=== PATIENT | male | born 1975 | race Caucasian/White ===

== ENCOUNTER 2019-06-30 09:12 | Inpatient (IN) ==
[2019-06-30 09:47] LABS: Appearance Urine Clear (Clear); Blood Urine Negative (Negative); Color Urine Dark Yellow; Glucose Urine UA Negative (Negative); Leukocyte Esterase Urine Negative (Negative); Nitrite Urine Negative (Negative); Protein Urine Negative (Negative); Specific Gravity Urine 1.029 (1.000-1.030); Urobilinogen Urine Negative (Negative); pH Urine 5.5 (4.5-7.5)
[2019-06-30 09:49] LABS: Bilirubin Urine Negative (Negative); Ictotest Urine Negative (Negative)
[2019-06-30 09:50] LABS: Ketones Urine 3+ (Negative)
[2019-06-30 10:16] LABS: Amphetamines+Metham, Urine Neg (Neg); Barbiturates, Urine Neg (Neg); Benzodiazepine, Urine Neg (Neg); Cocaine, Urine Neg (Neg); MDMA (Ecstacy), Urine Neg (Neg); Methadone, Urine Neg (Neg); Opiate, Urine Neg (Neg); Phencyclidine, Urine Neg (Neg)
[2019-06-30 10:24] LABS: Basophils # (auto) 0.04 K/uL (0-0.2); Basophils % (auto) 0.6 %; Eosinophils # (auto) 0.06 K/uL (0-0.5); Eosinophils % (auto) 0.9 %; Hematocrit (blood only) 44.7 % (42-52); Hemoglobin 15.7 g/dL (14.0-18.0); Immature Granulocytes # (auto) 0.07 K/uL (0.00-0.02); Lymphocytes # (auto) 1.07 K/uL (1.2-3.4); Lymphocytes % (auto) 15.8 %; Mean Corpuscular Hgb Conc 35.1 g/dL (32-36); Mean Corpuscular Volume 88.2 fL (80-100); Mean Platelet Volume 11.5 fL (7.4-10.4); Monocytes # (auto) 0.69 K/uL (0.11-0.59); Monocytes % (auto) 10.2 %; Neutrophils # (auto) 4.86 K/uL (1.4-6.5); Neutrophils % (auto) 71.5 %; Platelet Count 198 K/uL (130-400); RDW Coefficient of Variation 14.1 % (11.5-14.5); RDW Standard Deviation 45.4 fL (36.4-46.3); Red Blood Count 5.07 M/uL (4.7-6.1); White Blood Count 6.79 K/uL (4.8-10.8)
[2019-06-30 10:41] LABS: Alanine Aminotransferase 23 U/L (12-78); Aspartate Aminotransferase 14 U/L (15-37); BUN Creatinine Ratio 13.6 (10-20); Blood Urea Nitrogen 15 mg/dl (7-18); Calcium 9.7 mg/dl (8.5-10.1); Carbon Dioxide 24 mmol/L (21-32); Chloride 110 mmol/L (98-107); Est GFR (African American) 92.8; Est GFR (Non-African American) 80.1; Glucose 95 mg/dl (70-99); Potassium 3.8 mmol/L (3.5-5.1); Sodium 142 mmol/L (136-145)
[2019-06-30 10:49] LABS: Acetaminophen < 2 ug/ml (10-30); Salicylate < 1.7 mg/dl (2.8-20)
[2019-06-30 10:52] LABS: Albumin Globulin Ratio 1.3 (0.9-2); Alkaline Phosphatase 109 U/L (45-117); Bilirubin,Total 0.9 mg/dl (0.2-1)
[2019-06-30] MEDS ORDERED: BISMUTH SUBSALICYLATE PER ML OMNICELL CHARGE PO PRN (14:50)
[2019-06-30] MEDS ORDERED: MAGNESIUM HYDROXIDE SUSP 30 ML UDC PO PRN (14:50)
[2019-06-30] MEDS ORDERED: SODIUM CHLORIDE 0.65% NA SOLN 45 ML (OCEAN) PRN (14:50)
[2019-06-30] MEDS ORDERED: ACETAMINOPHEN 325 MG TAB PO PRN (14:50)
[2019-06-30] MEDS ORDERED: ALUMINUM/MAGNESIUM SUSP 30 ML UDC PO PRN (14:50)
--- NOTE | 2019-06-30 17:35 | Emergency Department Note ---
History of Present Illness General Chief complaint: Mental Health Evaluation Stated complaint: MENTAL HEALTH EVAL Time Seen by Provider: 06/30/19 09:40 History of Present Illness Provider complaint: Depression Onset (ago): month(s) 3 Maximum Pain Intensity: 3 44-year-old male with history of hypertension and depression presents emergency department for mental health evaluation. Patient states he has been depressed about his divorce. He states his left him after [place] and has been feeling depressed since then. He states he is in the process of divorce and this is a second divorce. He states he has had difficulty sleeping, not sleeping enough. He reports loss of interest in things he used to be previously given jose miguel. He does not feel guilty about anything. He reports decreased energy levels. Decreased appetite. And decreased ability to concentrate. Patient states he has has been having suicidal thoughts but has no active plan. Patient does [facility] a [facility]. He has never been admitted for any inpatient psychiatric unit. He does have a past medical history of PTSD and is on Zoloft. He does have weapons at home. He denies any alcohol or drug use. Denies any pill ingestion at this time. Home Medications Home Medications Medication Instructions Recorded Confirmed Type allopurinol [Zyloprim] 200 mg PO DAILY 06/29/19 06/30/19 History aspirin [Aspir-81] 81 mg PO DAILY 06/29/19 06/30/19 History atorvastatin [Lipitor] 40 mg PO DAILY 06/29/19 06/30/19 History levothyroxine [Synthroid] 50 mcg PO DAILY 06/29/19 06/30/19 History lisinopril 40 mg PO DAILY 06/29/19 06/30/19 History prazosin [Minipress] 1 mg PO TID 06/29/19 06/30/19 History sertraline 25 mg PO DAILY 06/29/19 06/30/19 History tramadol 100 mg PO Q8 PRN 06/29/19 06/30/19 History meloxicam 15 mg PO DAILY 06/30/19 06/30/19 History Allergies Allergy/AdvReac Type Severity Reaction Status Date / Time No Known Allergies Allergy Unverified 06/30/19 09:31 Past Med/Surg History Medical History Depression (Acute) Hypercholesterolemia Hypertension Hypothyroidism PTSD (post-traumatic stress disorder) Social History Feels Safe at Home: Yes Smoking Status: Never smoker Review of Systems A total of 10 systems reviewed and were otherwise negative Physical Exam Vital Signs Vital Signs - 24 hr 06/30/19 09:14 06/30/19 11:10 06/30/19 13:15 Temperature 36.7 C 36.6 C Temperature Source Oral Oral Pulse Rate 78 Pulse Rate [Right Finger] 72 84 Respiratory Rate 20 20 20 Respiratory Effort / Characteristics Non-Labored Non-Labored Spontaneous Non-Labored Spontaneous Respiratory Depth Normal Normal Normal Respiratory Pattern Regular Regular Blood Pressure 150/98 H Blood Pressure [Left Arm] 151/99 H 134/87 Blood Pressure Mean 115 Blood Pressure Mean [Left Arm] 116 102 Pulse Oximetry 96 97 99 Oxygen Delivery Method Room Air Room Air Room Air Sepsis Recent Fever Within 48 Hours No Sepsis Action Taken by Nursing No Action Required Physical Exam GENERAL: He is oriented to person, place, and time. He appears well-developed and well-nourished. He does not appear distressed. HENT: Exam performed. - Head: Normocephalic and atraumatic. - Right Ear: External ear normal. No mastoid tenderness. - Left Ear: External ear normal. No mastoid tenderness. - Mouth/Throat: The oropharynx is clear and moist. No trismus in the jaw. No dental abscesses or uvula swelling. No oropharyngeal exudate or tonsillar abscesses. EYES: Conjunctivae and EOM are normal. Pupils are equal, round, and reactive to light. Right eye exhibits no discharge. Left eye exhibits no discharge. No scleral icterus. NECK: Normal range of motion. Neck supple. No JVD present. No spinous process tenderness present. No carotid bruit present. No rigidity. No tracheal deviation and normal range of motion present. No Brudzinski's sign and no Kernig's sign noted. CV: Normal rate, regular rhythm, normal heart sounds and intact distal pulses. There is no peripheral edema. Palpable radial pulses bue. PULM/CHEST: Effort normal and breath sounds normal. No respiratory distress. No stridor. He has no wheezes. He has no rales. - Chest Wall: He exhibits no tenderness. ABD: The abdomen is soft. Bowel sounds are normal. He has no distension. No mass is present. There is no tenderness. There is no rebound, no guarding, no Rendon's sign and no tenderness at McBurney's point. Rovsig negative. MUSC/SKEL: Normal range of motion. There is no peripheral edema, tenderness or deformity. LYMPH: No cervical adenopathy. NEURO: He is alert and oriented to person, place, and time. He has normal strength. No cranial nerve deficit or sensory deficit. Coordination and gait normal. GCS eye subscore is 4. GCS verbal subscore is 5. GCS motor subscore is 6. Cerebellar tests wnl. SKIN: Skin is warm and dry. He is not diaphoretic. PSYCH: Depressed. Positive suicidal ideation. Negative homicidal ideation. Course Course 1100: The patient was evaluated in room A5. A complete history and physical exam was performed. 1300: Patient medically cleared. Patient will be placed in observation at this time awaiting psychiatric evaluation and psychiatric placement. Patient is voluntary to be admitted. Medical Decision Making Laboratory Data Result diagrams: 06/30/19 09:54 06/30/19 09:54 Lab Results 06/30/19 06/30/19 06/30/19 Range/Units 09:30 09:30 09:54 WBC 6.79 (4.8-10.8) K/uL RBC 5.07 (4.7-6.1) M/uL Hgb 15.7 (14.0-18.0) g/dL Hct 44.7 (42-52) % MCV 88.2 (80-100) fL MCH 31.0 (25-34) pg MCHC 35.1 (32-36) g/dL RDW Std Deviation 45.4 (36.4-46.3) fL RDW Coeff of Yulissa 14.1 (11.5-14.5) % Plt Count 198 (130-400) K/uL MPV 11.5 H (7.4-10.4) fL Immature Gran % (Auto) 1.0 % Neut % (Auto) 71.5 % Lymph % (Auto) 15.8 % [place] % (Auto) 10.2 % Eos % (Auto) 0.9 % Baso % (Auto) 0.6 % Immature Gran # (Auto) 0.07 H (0.00-0.02) K/uL Neut # (Auto) 4.86 (1.4-6.5) K/uL Lymph # (Auto) 1.07 L (1.2-3.4) K/uL [place] # (Auto) 0.69 H (0.11-0.59) K/uL Eos # (Auto) 0.06 (0-0.5) K/uL Baso # (Auto) 0.04 (0-0.2) K/uL Sodium (136-145) mmol/L Potassium (3.5-5.1) mmol/L Chloride (98-107) mmol/L Carbon Dioxide (21-32) mmol/L Anion Gap (3-11) BUN (7-18) mg/dl Creatinine (0.6-1.4) mg/dl Est Cr Clr Drug Dosing Est GFR ( Amer) Est GFR (Non-Af Amer) BUN/Creatinine Ratio (10-20) Glucose (70-99) mg/dl Calcium (8.5-10.1) mg/dl Total Bilirubin (0.2-1) mg/dl AST (15-37) U/L ALT (12-78) U/L Alkaline Phosphatase (45-117) U/L Total Protein (6.4-8.2) gm/dl Albumin (3.4-5.0) gm/dl Globulin (2.5-4.0) gm/dl Albumin/Globulin Ratio (0.9-2) TSH (0.300-4.500) uIu/ml Urine Color Dark Yellow Urine Appearance Clear (Clear) Urine pH 5.5 (4.5-7.5) Ur Specific [place] 1.029 (1.000-1.030) Urine Protein Negative (Negative) Urine Glucose (UA) Negative (Negative) Urine Ketones 3+ H (Negative) Urine Blood Negative (Negative) Urine Nitrite Negative (Negative) Urine Bilirubin Negative (Negative) Urine Urobilinogen Negative (Negative) Ur Leukocyte Esterase Negative (Negative) Salicylates (2.8-20) mg/dl Urine Opiates Screen Neg (Neg) Ur Methadone, Qual Neg (Neg) Acetaminophen (10-30) ug/ml Urine Barbiturates Neg (Neg) Ur Phencyclidine (PCP) Neg (Neg) U Amphetamin/Meth Scrn Neg (Neg) MDMA (Ecstasy) Screen Neg (Neg) U Benzodiazepines Scrn Neg (Neg) Ur Cocaine Metabolite Neg (Neg) U Marijuana (THC) Screen Pos H (Neg) Ethyl Alcohol mg/dL (0-3) mg/dl 06/30/19 06/30/19 06/30/19 Range/Units 09:54 09:54 09:54 WBC (4.8-10.8) K/uL RBC (4.7-6.1) M/uL Hgb (14.0-18.0) g/dL Hct (42-52) % MCV (80-100) fL MCH (25-34) pg MCHC (32-36) g/dL RDW Std Deviation (36.4-46.3) fL RDW Coeff of Yulissa (11.5-14.5) % Plt Count (130-400) K/uL MPV (7.4-10.4) fL Immature Gran % (Auto) % Neut % (Auto) % Lymph % (Auto) % [place] % (Auto) % Eos % (Auto) % Baso % (Auto) % Immature Gran # (Auto) (0.00-0.02) K/uL Neut # (Auto) (1.4-6.5) K/uL Lymph # (Auto) (1.2-3.4) K/uL [place] # (Auto) (0.11-0.59) K/uL Eos # (Auto) (0-0.5) K/uL Baso # (Auto) (0-0.2) K/uL Sodium 142 (136-145) mmol/L Potassium 3.8 (3.5-5.1) mmol/L Chloride 110 H (98-107) mmol/L Carbon Dioxide 24 (21-32) mmol/L Anion Gap 8.0 (3-11) BUN 15 (7-18) mg/dl Creatinine 1.10 (0.6-1.4) mg/dl Est Cr Clr Drug Dosing Not Reportable Est GFR ( Amer) 92.8 Est GFR (Non-Af Amer) 80.1 BUN/Creatinine Ratio 13.6 (10-20) Glucose 95 (70-99) mg/dl Calcium 9.7 (8.5-10.1) mg/dl Total Bilirubin 0.9 (0.2-1) mg/dl AST 14 L (15-37) U/L ALT 23 (12-78) U/L Alkaline Phosphatase 109 (45-117) U/L Total Protein 7.0 (6.4-8.2) gm/dl Albumin 4.0 (3.4-5.0) gm/dl Globulin 3.0 (2.5-4.0) gm/dl Albumin/Globulin Ratio 1.3 (0.9-2) TSH 2.680 (0.300-4.500) uIu/ml Urine Color Urine Appearance (Clear) Urine pH (4.5-7.5) Ur Specific [place] (1.000-1.030) Urine Protein (Negative) Urine Glucose (UA) (Negative) Urine Ketones (Negative) Urine Blood (Negative) Urine Nitrite (Negative) Urine Bilirubin (Negative) Urine Urobilinogen (Negative) Ur Leukocyte Esterase (Negative) Salicylates < 1.7 L (2.8-20) mg/dl Urine Opiates Screen (Neg) Ur Methadone, Qual (Neg) Acetaminophen < 2 L (10-30) ug/ml Urine Barbiturates (Neg) Ur Phencyclidine (PCP) (Neg) U Amphetamin/Meth Scrn (Neg) MDMA (Ecstasy) Screen (Neg) U Benzodiazepines Scrn (Neg) Ur Cocaine Metabolite (Neg) U Marijuana (THC) Screen (Neg) Ethyl Alcohol mg/dL < 3.0 (0-3) mg/dl MDM Narrative Observation note Indication: Psychiatric evaluation and psychiatric placement Patient, with depression hypertension was first seen at 1100 hrs and the observation time began at 1300 hrs and was necessary in order to have the patient evaluated by psychiatric rock wool insulator and determine psychiatric inpatient placement. Upon re-evaluation, 2 hours of observation revealed that the patient should be admitted for inpatient psychiatric care. Disposition date and time June 30, 2019 1500. Impression & Plan Depression, Suicidal ideation Discharge Plan Visit Data *Final* Discharge Date/Time: 06/30/19 16:24 Chief Complaint: Mental Health Evaluation Stated Complaint: MENTAL HEALTH EVAL ED Provider: Leonid Kinney Discharge Problem: Depression, Suicidal ideation Patient Disposition: Admitted As Inpatient Discharge Instructions Interventions: ED Discharge Assessment Last Done: 06/30/19 16:24 Discharge Problem: Depression Qualifiers: Depression Type: unspecified Qualified Code(s): F32.9 - Major depressive disorder, single episode, unspecified
[2019-07-01] MEDS: LEVOTHYROXINE SODIUM 50 MCG TABLET PO SCH (07:48)
[2019-07-01] MEDS: MELOXICAM 7.5 MG TAB PO SCH (08:27)
[2019-07-01] MEDS: ASPIRIN 81 MG ECTAB PO SCH (08:27)
[2019-07-01] MEDS: ATORVASTATIN 40 MG TAB PO SCH (08:27)
[2019-07-01] MEDS: lisinopriL 40 MG TAB PO SCH (08:27)
[2019-07-01] MEDS: allopurinoL 100 MG TAB PO SCH (08:28)
[2019-07-01] MEDS ORDERED: SERTRALINE HCL 50 MG TABLET PO SCH (09:00)
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
[2019-07-01] MEDS ORDERED: SERTRALINE HCL 50 MG TABLET PO ONE (11:30)
[2019-07-01] MEDS: TRAMADOL HCL 50 MG TABLET PO PRN (11:39)
[2019-07-02] MEDS: LEVOTHYROXINE SODIUM 50 MCG TABLET PO SCH (07:47)
[2019-07-02] MEDS: ASPIRIN 81 MG ECTAB PO SCH (07:47)
[2019-07-02] MEDS: ATORVASTATIN 40 MG TAB PO SCH (07:48)
[2019-07-02] MEDS: MELOXICAM 7.5 MG TAB PO SCH (07:48)
[2019-07-02] MEDS: lisinopriL 40 MG TAB PO SCH (07:49)
[2019-07-02] MEDS: allopurinoL 100 MG TAB PO SCH (07:51)
[2019-07-02] MEDS: TRAMADOL HCL 50 MG TABLET PO PRN (07:51)
[2019-07-02] MEDS ORDERED: SERTRALINE HCL 50 MG TABLET PO SCH (09:00)
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
[2019-07-03 05:05] LABS: Marijuana Quant, GCMS Urine 24 ng/mL (<5)
[2019-07-03] MEDS: LEVOTHYROXINE SODIUM 50 MCG TABLET PO SCH (07:52)
[2019-07-03] MEDS: SERTRALINE HCL 100 MG TABLET PO SCH (08:47)
[2019-07-03] MEDS: ASPIRIN 81 MG ECTAB PO SCH (08:47)
[2019-07-03] MEDS: lisinopriL 40 MG TAB PO SCH (08:47)
[2019-07-03] MEDS: ATORVASTATIN 40 MG TAB PO SCH (08:47)
[2019-07-03] MEDS: allopurinoL 100 MG TAB PO SCH (08:48)
[2019-07-03] MEDS: MELOXICAM 7.5 MG TAB PO SCH (08:48)
[2019-07-03] MEDS: TRAMADOL HCL 50 MG TABLET PO PRN (08:51)
--- NOTE | 2019-07-03 12:43 | Psychiatric Progress Note ---
Date of Service July 03, 2019 Impression / Recommendations Impression 44-year-old male with a history of PTSD and depression in the wake of separation and pending divorce from his several months ago. He presents with worsening mood, suicidality, and inability to function, has not been able to go to work regularly due to the severity of his depressive symptoms, and family expressed concerns about his safety given access to guns at home. He was admitted voluntarily, but has already submitted a 72-hour notice requesting to withdrawal from treatment, stating he likes to be in control of everything and does not want to be here more than 3 days. Reviewed discharge at this time is not felt to be safe or appropriate, as we still need to discuss safety/discharge planning with outpatient supports and coordinate appropriate aftercare services. He remains agreeable with titration of sertraline to target depressive symptoms and PTSD. Sleep has been improved with hydroxyzine here on the unit. He has outpatient providers at the [facility] - care has been coordinated and appointments rescheduled. Pt has participated in a family meeting with his brother and sister yesterday. 72-hour notice expires tomorrow morning around 0920 - anticipate discharge before this time tomorrow. (1) Depression: 06/30 -discussed diagnosis and treatment recommendations, including titration of SSRI to a therapeutic dose, which he agreed to. Increase to 50 mg today, and 75 mg tomorrow. Continue titration to effective dose. -Continue hydroxyzine as needed for sleep, which he found beneficial last night. -Encourage involvement in groups and therapy, work on healthy coping skills and discharge safety plan. -Family meeting, review recommendations for weapons to be secured prior to discharge. -Coordinate care with outpatient psychiatrist and therapist at the [facility]. -Encourage patient to review his daily structure and remove some of his commitments to allow adequate time for self-care and sleep. 07/01 - Titrating sertraline to 100mg tomorrow morning. Pt denies side effects at this point. - Family meeting with siblings and possibly son this afternoon to discuss safety and discharge planning - Need to coordinate with outpatient psychiatric providers and reschedule appointments as necessary 07/02 - Continue sertraline 100mg daily - patient reporting some abdominal discomfort and wishing to remain on this dosage at discharge - Family meeting held yesterday - 72-hour notice expires 07/03 around 0920 - patient remains unwilling to rescind notice. With currently available information, there is not sufficient criteria to pursue an involuntary commitment - it is felt that his situation - Anticipate discharge home tomorrow morning (2) PTSD (post-traumatic stress disorder): Plan as above. Discontinue prazosin, as patient states he has not been taking it and had a trial of it in the past and it was ineffective. (3) Hypertension: Continue home dose of lisinopril. Blood pressure within normal limits. (4) Hypothyroidism: Continue home dose of levothyroxine. TSH within normal limits. (5) Hypercholesterolemia: Continue home dose of atorvastatin. Risk Factors Assessment Male: Yes : Yes Do You Have Access To A Gun?: Yes Health Problems: Yes Mental Health Diagnoses: Yes Substance Use Disorders: No Previous Attempt: No Family History of Suicide: No Previous Psychiatric Hospitalization: No Hopelessness: Yes Smoker: No Protective Factors Assessment : No Responsible for Young Children: Yes Employed: Yes Supportive Family: Yes Good Rapport with Provider: Yes Interval History Identifying Information LYNNE PATEL is a 44-year-old M who currently lives in [place] alone, has a history of depression, obesity, HTN, HLD, and hypothyroidism, and was admitted on 06/30/19 14:50 on a 201 voluntary commitment for depression and suicidal ideation. Chief Complaint "I'm really good." Review of Systems Notes Constitutional: denied Cardiovascular: denied Respiratory: denied Gastrointestinal: reports some abdominal cramping and nausea Neurological: denied Psychiatric: denies symptoms other than stated above Total of at least 10 systems reviewed, pertinent positives as above and in HPI. Sleep Information Total Hours of Sleep: 5.25 Sleep Comments: pt on q-15 minute checks Meal Information Percent Meal Consumed - Breakfast: 100 Percent Meal Consumed - Lunch: 100 Percent Meal Consumed - Dinner: 100 Subjective Subjective Patient was seen & assessed and interval progress reviewed with treatment team. Staff report the patient tolerated a family meeting with his brother and sister yesterday. Family continued to report overall concerns, but did not identify any acute safety issues to indicated need to pursue involuntary commitment at this time. Pt was seen today to assess progress since admission. Pt states that he is feeling "really good" today. He was pleased with the outcome of his family meeting, feeling his siblings remain supportive. He does admit that his relationship with his was discussed and he was able to recognize that he need to "just give up on all of that, I realized I need to stop caring about where she is or what she's doing." Pt does admit that this will be a difficult mindset shift for him, and was encouraged to continue to seek assistance from staff as needed. He denies SI and feels as though he will be ready for discharge tomorrow. We discussed patient's ability to rescind his notice if desired, to allow for additional flexibility regarding discharge timeline. He continues to decline to do this. Pt denies other needs or concerns at this time. Physical Exam Psychiatric Orientation: alert, oriented x 3 and cooperative (and pleasant) Apperance: appropriately dressed, appropriately groomed and appeared stated age Eye Contact: good eye contact Motor Behavior: steady gait and station and no abnormal motor movements Speech: normal rate/rhythm/volume of speech Affect: euthymic affect and mood congruent with affect Mood: no depressed mood ("I'm a lot better than I was") Thought Process: goal directed thought process, clear/coherent thought process and thought association intact Thought Content: reality based without delusions; no hopelessness Suicidal Thoughts: denies suicidal thoughts and denies suicidal intent Homicidal Thoughts: denies homicidal thoughts Hallucinations: no auditory hallucinations and no visual hallucinations Cognition: attention grossly intact and language grossly intact Insight: + fair insight Judgement: + fair judgement Vital Signs (Past 24 Hours) Last Vital Signs Temp 36.7 C 07/03/19 06:46 Pulse 70 07/03/19 06:47 Resp 18 07/03/19 06:46 BP 145/92 H 07/03/19 06:47 Pulse Ox 99 06/30/19 16:24 Results & Data ([facility]) Laboratory Results Laboratory Results - last 24 hr 06/30/19 09:30 U Marijuana THC Carboxy 24 H Drug Screen Comment SEE NOTE Current Inpatient Medications Current Inpatient Medications: Current Inpatient Medications Acetaminophen (Tylenol) 650 mg PO Q4H PRN PRN Reason: Headache or Minor Fever Stop: 07/30/19 14:49 Al Hydrox/Mg Hydrox/Simethicone (Maalox) 30 ml PO Q4H PRN PRN Reason: GI Upset Stop: 07/30/19 14:49 Allopurinol (Zyloprim) 200 mg PO DAILY [facility] Stop: 07/31/19 08:59 Last Admin: 07/03/19 08:48 Dose: 200 mg Documented by: Aspirin (Ecotrin Ectab) 81 mg PO DAILY [facility] Stop: 07/31/19 08:59 Last Admin: 07/03/19 08:47 Dose: 81 mg Documented by: Atorvastatin Calcium (Lipitor) 40 mg PO DAILY [facility] Stop: 07/31/19 08:59 Last Admin: 07/03/19 08:47 Dose: 40 mg Documented by: Bismuth Subsalicylate (Kaopectate) 15 ml PO PRN PRN PRN Reason: Loose Stool Stop: 07/30/19 14:49 Hydroxyzine HCl (Vistaril) 50 mg PO HSZ PRN PRN Reason: Insomnia Stop: 07/30/19 14:49 Last Admin: 07/02/19 23:15 Dose: 50 mg Documented by: Hydroxyzine HCl (Vistaril) 25 mg PO Q4H PRN PRN Reason: Anxiety Stop: 07/30/19 14:49 Levothyroxine Sodium (Synthroid) 50 mcg PO DAILYBB [facility] Stop: 07/31/19 07:59 Last Admin: 07/03/19 07:52 Dose: 50 mcg Documented by: Lisinopril (Zestril) 40 mg PO DAILY [facility] Stop: 07/31/19 08:59 Last Admin: 07/03/19 08:47 Dose: 40 mg Documented by: Magnesium Hydroxide (Milk Of Magnesia) 30 ml PO DAILY PRN PRN Reason: Constipation Stop: 07/30/19 14:49 Meloxicam (Mobic) 15 mg PO QAM [facility] Stop: 07/31/19 08:59 Last Admin: 07/03/19 08:48 Dose: 15 mg Documented by: Sertraline HCl (Zoloft) 100 mg PO QAM [facility] Stop: 08/02/19 08:59 Last Admin: 07/03/19 08:47 Dose: 100 mg Documented by: Sodium Chloride ([place] Nasal) 1 - 2 sprays NA PRN PRN PRN Reason: Nasal Dryness/Congestion Stop: 07/30/19 14:49 Tramadol HCl (Ultram) 50 mg PO DAILY PRN PRN Reason: Pain Stop: 07/30/19 14:51 Last Admin: 07/03/19 08:51 Dose: 50 mg Documented by: Mental Health & Subst Abuse Tx Psychiatrist Name of Psychiatrist: Ibrahima Rajan [facility] Psychiatrist's Date of Appointment with Psychiatrist: 07/16/19 Time of Appointment with Psychiatrist: 12:30 Psychiatric Appointment Comment: Concepcion [facility] Therapist Name of Therapist: [place] Shirley Mendoza Therapist's Date of Therapist Appointment: 07/10/19 Time of Therapist Appointment: 11:00 a.m. Therapy Appointment Comment: [id number] [place] [id number] Post Discharge Appointments Primary Care Physician Name Of Family Doctor: [place] Shirley Lucio [facility] Date of Appointment with PCP: 07/19/19 Time of Appointment with PCP: 1:30 pm Provider Appointment Comment: [phone] [place] [address] Contact Information Discharge Discharge [address]: [address] [place] [address] (1) Depression Depression Type: unspecified Qualified Code(s): F32.9 - Major depressive disorder, single episode, unspecified (2) Hypertension Hypertension type: unspecified Qualified Code(s): I10 - Essential (primary) hypertension
[2019-07-04] MEDS: LEVOTHYROXINE SODIUM 50 MCG TABLET PO SCH (07:35)
[2019-07-04] MEDS: ASPIRIN 81 MG ECTAB PO SCH (08:37)
[2019-07-04] MEDS: TRAMADOL HCL 50 MG TABLET PO PRN (08:38)
[2019-07-04] MEDS: allopurinoL 100 MG TAB PO SCH (08:38)
[2019-07-04] MEDS: ATORVASTATIN 40 MG TAB PO SCH (08:38)
[2019-07-04] MEDS: SERTRALINE HCL 100 MG TABLET PO SCH (08:38)
[2019-07-04] MEDS: lisinopriL 40 MG TAB PO SCH (08:38)
[2019-07-04] MEDS: MELOXICAM 7.5 MG TAB PO SCH (08:38)
--- NOTE | 2019-07-04 09:40 | Discharge Summary ---
Date of Service July 04, 2019 History of Present Illness Patient presented to the ER 06/30/2019 reporting worsening mood and suicidal ideation in the context of the divorce. He states his left him after [place] and he has been feeling depressed since then, has had difficulty sleeping, loss of interest, low energy, decreased appetite, and poor concentration. 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 He has a history of PTSD and is prescribed sertraline 25 mg daily and prazosin 1 mg 3 times daily. He reported occasional marijuana use, and denied other substance abuse. He reported losing 100 pounds in the past year which he related to his anxiety and depression. 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 His brother and sister were in the ER and expressed concerns for his safety, stating he was getting worse each day and was not the same person. They did not feel he was safe to go home, and encouraged him to be admitted. They said he had been calling his ex- frequently and threatening to hurt himself. Admission labs notable for normal CBC, CMP, TSH 2.680, UA with 3+ ketones, UDS positive for marijuana and prazosin 1 mg 3 times daily. This morning he submitted a 72-hour notice requesting to withdrawal from treatment, stating he did not want to be here any longer than 3 days. On my assessment, he reports mood is "much better" today as he slept better last night, after several days of "no sleep." He also states he had stopped his Tramadol for 2 days and thinks he was having withdrawal, which may have contributed to his mood. He states he and his split up after 26 years of marriage and 4 kids, and it has been very hard for him. 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 He says his leaving him "really threw a wrench into my life." He was so distraught that he was unable to eat and sleep and "you can't live like that very long." He [facility] (but doens't know their names) in Apr., and was started on sertraline about a month ago, with an appt coming up this week. Denies current side effects. He says he doesn't know anything about prazosin, and has not been taking it (although per external med history, he filled it). He endorses low mood, crying spells, anhedonia, poor sleep and appetite, hopelessness, and SI, thinking "it would be a lot better if I didn't wake up tomorrow." Denies guilt. 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 States it is important for him to be in control of everything, and worries "about everything," has difficulty relaxing, and has had headaches recently. Denies any history of manic or psychotic symptoms, panic attacks, and OCD. States he has not been going to work because "it's a lot, I run a fdc by myself at night," and has missed >50% of his days over the past two weeks. States he has a lot of sick time, but "I needed to do something." His treatment goals are "to get back into sleeping and eating, and to carry on with my day. I'm very busy." States he thinks he slept last night because "they gave me some pills," hydroxyzine 50mg. Feels he needed "to step out of the rat race for a bit," and is making plans to cut back, has already told his friend he won't drive bus for him anymore. He states he is still in regular contact with his and thinks she may consider reconciling. He states their 12 year old daughter is with her. Physical Exam Psychiatric Orientation: alert, oriented x 3 and cooperative (and pleasant) Apperance: appropriately dressed, appropriately groomed and appeared stated age Eye Contact: good eye contact Motor Behavior: steady gait and station and no abnormal motor movements Speech: normal rate/rhythm/volume of speech Affect: euthymic affect (bright, interactive ) and mood congruent with affect Mood: no depressed mood ("I feel really good" and "1000 times better") Thought Process: goal directed thought process, clear/coherent thought process and thought association intact Thought Content: reality based without delusions; no hopelessness Suicidal Thoughts: denies suicidal thoughts, denies suicidal plan and denies suicidal intent Homicidal Thoughts: denies homicidal thoughts Hallucinations: no auditory hallucinations and no visual hallucinations Cognition: remote memory grossly intact, attention grossly intact and language grossly intact Estimated Intelligence: consistent with education level Insight: + fair insight Judgement: + fair judgement Vital Signs (Past 24 Hours) Last Vital Signs Temp 36.7 C 07/04/19 06:26 Pulse 73 07/04/19 06:26 Resp 18 07/04/19 06:26 BP 149/91 H 07/04/19 06:26 Pulse Ox 99 06/30/19 16:24 Principal Diagnosis - Major depressive disorder, single episode, without psychotic features - PTSD Psychiatric Data 44-year-old male was admitted voluntarily for inpatient psychiatric treatment on 06/30/2019 after presenting to the ED with worsening mood, suicidality, and inability to function - stating he has not been able to work regularly due to the severity of his depressive symptoms. Pt has a reported history of PTSD and depression in the wake of separation and pending divorce from his several months ago. Although the patient verbalized understanding of voluntary admission, he did submit a 72-hour notice requesting to withdrawal from treatment short after admission to the unit. Pt reported he was not requesting immediate discharge; however, he likes to be in control of everything and did not want an admission lasting longer than 3 days. Pt reported having outpatient psychiatric services through the [facility] and has already been initiated on a combination of sertraline (25mg) and prazosin prior to admission. Pt reported he had not noticed any benefit from this regimen and was agreeable with titration of sertraline to target depressive symptoms and PTSD. At the time of discharge, patient was tolerating sertraline 100mg and is requesting a prescription to continue at this dose. As patient could not recall being prescribed prazosin, it was discontinued - patient was encouraged to discuss this medication further with his outpatient psychiatrist if desired. Pt did request medication to assist with sleep, and benefitted from hydroxyzine during his stay - he did request and receive a discharge prescription for this medication as well. Pt participated appropriately in group and recreational programming, and was supportive of peers. He participated in aftercare planning and allowed coordination with the [facility] to reschedule outpatient appointments. Pt allowed his brother and sister to participate in a family meeting to discuss af tercare and safety planning. They did verbalize concern during this meeting, specifically as it related to how the patient has been managing the separation from his . Pt did continue to process this with staff - however, the ongoing stress of his separation is likely to put him at higher long-term risk of decompensation. He did report that he has benefitted from treatment and his mood was significantly improved. Pt declined to rescind his 72-hour notice, but did amend the document to allow for flexibility with discharge - and is to be transported home by his niece. Based on review of patient's case and their current presentation, risk of harm to self or others is no longer perceived to be acute. Management of symptoms on an outpatient basis seems the most appropriate and least restrictive setting. Pt seems appropriate for discharge with recommendation for consistent follow-up with outpatient psychiatric prescriber and therapist. Our social work team did advocate for a high-risk transplant case manager through the [facility], given patient's suicidality and reported acts of furtherance (per 's report, though timeline of events was not provided). [facility] did decline to offer this service at this time; however, it remains our recommendation that he be offered this service at discharge. Pt verbalized understanding of discharge plan reviewed and is agreeable with plan to be discharged home today. Day of Discharge Assessment Patient's case was reviewed and discussed with supervising psychiatrist, nursing, and social work. Staff report the patient continues to attend group programming and demonstrate appropriate interactions with peers. He has continued to communicate with family via phone, and has arranged for his niece to pick him up this afternoon. Pt did amend his 72-hour notice to at 1300 this afternoon - in order to provide some flexibility with his transportation home. No additional collateral information has been provided to meet criteria to pursue extended psychiatric hospitalization. Pt was seen today to assess progress since admission. Pt states that he is feeling "really good today" and reports his mood is "1000 times better." Pt states that he has continued to communicate with his parents and siblings over the phone - stating they are aware of his discharge today and support this. Pt continues to state that he feels he could reach out to these family members for support in the future as needed. Pt did complete his safety plan, adding some additional coping skills and "red flags" at staff's request. He did verbalize understanding of how to use this plan to his benefit moving forward and states his intention is to keep the safety plan on his refrigerator at home. Pt continues to tolerate sertraline 100mg, and is requesting to continue this dose on discharge. He is aware of plan for him to [facility] to [facility] Pt participated in review of discharge medication list and verbalized understanding and agreement. He denies any additional concerns at this time and feels as though his treatment goals have been met. Pt denies SI today and is requesting discharge home. ROS: Constitutional: denied Cardiovascular: denied Respiratory: denied Gastrointestinal: denied Neurological: denied Psychiatric: denies symptoms other than stated above Total of at least 10 systems reviewed, pertinent positives as above and in HPI. Transition of Care Transition Of Care Record: was reviewed with the patient Advance Directives Advance Directives Information Provided: Yes Advance Directives: No Mental Health Advance Directive: No Advance Directives on File: No Living Will: No Power of Blower Feeder Dyed Raw Stock: No Advance Directives Reason:: Reportedly requested paperwork on admission, was encouraged to review on an outpatient basis with his PCP given this is a Mental Health Visit. Risk Factors Assessment Presenting risk factors reviewed on discharge. Precipitating stressors mitigated by: admission for inpatient psychiatric observation and treatment, appropriate adjustments to medications to target symptoms, attendance of therapeutic treatment groups, development of healthy and effective coping strategies, involvement of outpatient supports, completion of a safety plan, confirmation of guns and weapons being secured, and education on diagnoses. Pt has demonstrated improvement in condition with regard to improvement in mood, resolution of SI, involvement of family members in a discharge/safety planning meeting, and coordination of care with outpatient psychiatric providers. At thi s time, patient is requesting discharge and is no longer considered to be at acute risk of harm to himself or others. Pt will be discharged with recommendation for ongoing outpatient psychiatric treatment. Pt is at increased risk of harm to self or others when compared to the general population and there are several risk factors which are not likely to be mitigated by extended inpatient treatment setting. Pt reported rather rapid resolution of SI, though ongoing outpatient stressor persist - specifically ongoing interaction with his from whom he was reportedly to be . We have recommended and attempted to arrange a high-risk transplant case manager through the [facility] for ongoing intensive outpatient support - while this was declined initially by [facility]'s [facility], it remains our recommendation. Male: Yes : Yes Do You Have Access To A Gun?: Yes Health Problems: Yes Mental Health Diagnoses: Yes Substance Use Disorders: No Previous Attempt: No Family History of Suicide: No Previous Psychiatric Hospitalization: No Hopelessness: Yes Smoker: No Protective Factors Assessment : No Responsible for Young Children: Yes Employed: Yes Supportive Family: Yes Good Rapport with Provider: Yes Tobacco Cessation at Discharge Tobacco Cessation Medication Prescribed at Discharge: Not Applicable/Non-Smoker Total Time Total Time Spent: Greater Than 30 Minutes Total Time Includes: Examination of the patient, Discharge Planning, Medication Reconciliation and Communication with other providers Discharge Data Lab Results 06/30/19 06/30/19 06/30/19 09:30 09:30 09:30 WBC RBC Hgb Hct MCV MCH MCHC RDW Std Deviation RDW Coeff of Yulissa Plt Count MPV Immature Gran % (Auto) Neut % (Auto) Lymph % (Auto) Bryan % (Auto) Eos % (Auto) Baso % (Auto) Immature Gran # (Auto) Neut # (Auto) Lymph # (Auto) Bryan # (Auto) Eos # (Auto) Baso # (Auto) Sodium Potassium Chloride Carbon Dioxide Anion Gap BUN Creatinine Est Cr Clr Drug Dosing Est GFR ( Amer) Est GFR (Non-Af Amer) BUN/Creatinine Ratio Glucose Calcium Total Bilirubin AST ALT Alkaline Phosphatase Total Protein Albumin Globulin Albumin/Globulin Ratio TSH Urine Color Dark Yellow Urine Appearance Clear Urine pH 5.5 Ur Specific [place] 1.029 Urine Protein Negative Urine Glucose (UA) Negative Urine Ketones 3+ H Urine Blood Negative Urine Nitrite Negative Urine Bilirubin Negative Urine Urobilinogen Negative Ur Leukocyte Esterase Negative Salicylates Urine Opiates Screen Neg Ur Methadone, Qual Neg Acetaminophen Urine Barbiturates Neg Ur Phencyclidine (PCP) Neg U Amphetamin/Meth Scrn Neg MDMA (Ecstasy) Screen Neg U Benzodiazepines Scrn Neg Ur Cocaine Metabolite Neg U Marijuana (THC) Screen Pos H U Marijuana THC Carboxy 24 H Drug Screen Comment SEE NOTE Ethyl Alcohol mg/dL 06/30/19 06/30/19 06/30/19 09:54 09:54 09:54 WBC 6.79 RBC 5.07 Hgb 15.7 Hct 44.7 MCV 88.2 MCH 31.0 MCHC 35.1 RDW Std Deviation 45.4 RDW Coeff of Yulissa 14.1 Plt Count 198 MPV 11.5 H Immature Gran % (Auto) 1.0 Neut % (Auto) 71.5 Lymph % (Auto) 15.8 Bryan % (Auto) 10.2 Eos % (Auto) 0.9 Baso % (Auto) 0.6 Immature Gran # (Auto) 0.07 H Neut # (Auto) 4.86 Lymph # (Auto) 1.07 L Bryan # (Auto) 0.69 H Eos # (Auto) 0.06 Baso # (Auto) 0.04 Sodium 142 Potassium 3.8 Chloride 110 H Carbon Dioxide 24 Anion Gap 8.0 BUN 15 Creatinine 1.10 Est Cr Clr Drug Dosing Not Reportable Est GFR ( Amer) 92.8 Est GFR (Non-Af Amer) 80.1 BUN/Creatinine Ratio 13.6 Glucose 95 Calcium 9.7 Total Bilirubin 0.9 AST 14 L ALT 23 Alkaline Phosphatase 109 Total Protein 7.0 Albumin 4.0 Globulin 3.0 Albumin/Globulin Ratio 1.3 TSH 2.680 Urine Color Urine Appearance Urine pH Ur Specific [place] Urine Protein Urine Glucose (UA) Urine Ketones Urine Blood Urine Nitrite Urine Bilirubin Urine Urobilinogen Ur Leukocyte Esterase Salicylates < 1.7 L Urine Opiates Screen Ur Methadone, Qual Acetaminophen < 2 L Urine Barbiturates Ur Phencyclidine (PCP) U Amphetamin/Meth Scrn MDMA (Ecstasy) Screen U Benzodiazepines Scrn Ur Cocaine Metabolite U Marijuana (THC) Screen U Marijuana THC Carboxy Drug Screen Comment Ethyl Alcohol mg/dL 06/30/19 09:54 WBC RBC Hgb Hct MCV MCH MCHC RDW Std Deviation RDW Coeff of Yulissa Plt Count MPV Immature Gran % (Auto) Neut % (Auto) Lymph % (Auto) Bryan % (Auto) Eos % (Auto) Baso % (Auto) Immature Gran # (Auto) Neut # (Auto) Lymph # (Auto) Bryan # (Auto) Eos # (Auto) Baso # (Auto) Sodium Potassium Chloride Carbon Dioxide Anion Gap BUN Creatinine Est Cr Clr Drug Dosing Est GFR ( Amer) Est GFR (Non-Af Amer) BUN/Creatinine Ratio Glucose Calcium Total Bilirubin AST ALT Alkaline Phosphatase Total Protein Albumin Globulin Albumin/Globulin Ratio TSH Urine Color Urine Appearance Urine pH Ur Specific [place] Urine Protein Urine Glucose (UA) Urine Ketones Urine Blood Urine Nitrite Urine Bilirubin Urine Urobilinogen Ur Leukocyte Esterase Salicylates Urine Opiates Screen Ur Methadone, Qual Acetaminophen Urine Barbiturates Ur Phencyclidine (PCP) U Amphetamin/Meth Scrn MDMA (Ecstasy) Screen U Benzodiazepines Scrn Ur Cocaine Metabolite U Marijuana (THC) Screen U Marijuana THC Carboxy Drug Screen Comment Ethyl Alcohol mg/dL < 3.0 Hospital Course (1) Depression: 06/30 -discussed diagnosis and treatment recommendations, including titration of SSRI to a therapeutic dose, which he agreed to. Increase to 50 mg today, and 75 mg tomorrow. Continue titration to effective dose. -Continue hydroxyzine as needed for sleep, which he found beneficial last night. -Encourage involvement in groups and therapy, work on healthy coping skills and discharge safety plan. -Family meeting, review recommendations for weapons to be secured prior to discharge. -Coordinate care with outpatient psychiatrist and therapist at the [facility]. -Encourage patient to review his daily structure and remove some of his commitments to allow adequate time for self-care and sleep. 07/01 - Titrating sertraline to 100mg tomorrow morning. Pt denies side effects at this point. - Family meeting with siblings and possibly son this afternoon to discuss safety and discharge planning - Need to coordinate with outpatient psychiatric providers and reschedule appointments as necessary 07/02 - Continue sertraline 100mg daily - patient reporting some abdominal discomfort and wishing to remain on this dosage at discharge - Family meeting held yesterday - 72-hour notice expires 07/03 around 0920 - patient remains unwilling to rescind notice. With currently available information, there is not sufficient criteria to pursue an involuntary commitment - it is felt that his situation - Anticipate discharge home tomorrow morning (2) PTSD (post-traumatic stress disorder): Plan as above. Discontinue prazosin, as patient states he has not been taking it and had a trial of it in the past and it was ineffective. (3) Hypertension: Continue home dose of lisinopril. Blood pressure within normal limits. (4) Hypothyroidism: Continue home dose of levothyroxine. TSH within normal limits. (5) Hypercholesterolemia: Continue home dose of atorvastatin. Mental Health & Subst Abuse Tx Psychiatrist Name of Psychiatrist: [facility] Psychiatrist's Date of Appointment with Psychiatrist: 07/16/19 Time of Appointment with Psychiatrist: 12:30 Psychiatric Appointment Comment: [facility] Therapist Name of Therapist: [facility] Therapist's Date of Therapist Appointment: 07/10/19 Time of Therapist Appointment: 11:00 a.m. Therapy Appointment Comment: [id number] [place] [id number] Post Discharge Appointments Primary Care Physician Name Of Family Doctor: [facility] Date of Appointment with PCP: 07/19/19 Time of Appointment with PCP: 1:30 pm Provider Appointment Comment: [id number] [place] [id number] Smoking Cessation Counseling Tobacco Cessation Medication Prescribed at Discharge: Not Applicable/Non-Smoker Contact Information Discharge Discharge Address: [address] [place] [address] Discharge Plan Discharge Items Patient Disposition: Home - Self-Care Reason For Visit: DEPRESSION Discharge Diagnosis: - Depression - PTSD Activity: Resume your previous activity Non-emergency contact: Primary Care Provider, Psychiatrist and Therapist Call non-emergency contact if: you have any medication questions and your symptoms worsen Follow-up/Referrals: PCP,NO [Primary Care Provider] - Diet: Regular Addtl Attending Provider Instructions: SPECIAL CARE INSTRUCTIONS: 1. Follow through with your scheduled aftercare appointments. If unable to keep an appointment, please call to reschedule. 2. Take your medication only as prescribed. Medication should not be changed or stopped without the approval of your doctor. In the event of worsening symptoms or concerns about side effects, contact your doctor immediately. 3. Utilize new healthy coping skills, anger management skills, and stress management skills learned during your hospitalization. Journal feelings and process them with a support person. Identify stressors or situations that may result in relapse, deterioration or inappropriate behaviors and develop a plan to deal with those issues. 4. If your coping skills are ineffective and you are in crisis, contact your tpatient providers for direction. If unable to reach your providers, please call the CAN HELP LINE AT or go to the closest Emergency Room. 5. Avoid alcohol and un-prescribed drugs. 6. You have been provided with the Mental Health Advance Directives Pamphlet for your review. AFTERCARE APPOINTMENTS: * Please call your insurance company prior to your scheduled appointment to confirm your aftercare providers are covered. Take your insurance information to your appointments. WHO TO CALL AND WHEN: Medical Emergencies: For questions or emergencies related to your hospital stay, please contact the Inpatient Behavioral Health Unit at [phone]. A [facility]pc is on-call 07/11 for the Behavioral Health Unit for emergencies At any time you feel your situation is an emergency, you may also call 911 immediately. Your Discharge Instructions noted above were prepared by provider Josseline Thakkar PA-C. Pending Studies at Discharge: No Stand-Alone Forms: My [facility] MyCadbox, Smoking Cessation, Suicide Prevention Resources Medications and DC Order Prescriptions: New hydroxyzine HCl 50 mg tablet 50 mg PO HSZ PRN (Reason: insomnia) Qty: 30 RF: 0 sertraline 100 mg Tablet 100 mg PO QAM 30 Days Qty: 30 RF: 0 Continued atorvastatin [Lipitor] 80 mg tablet 40 mg PO DAILY RF: 0 allopurinol [Zyloprim] 100 mg tablet 200 mg PO DAILY RF: 0 aspirin [Aspir-81] 81 mg Tablet,Delayed Release (Dr/Ec) 81 mg PO DAILY RF: 0 tramadol 50 mg Tablet 100 mg PO Q8 PRN (Reason: Pain) RF: 0 levothyroxine [Synthroid] 50 mcg tablet 50 mcg PO DAILY RF: 0 lisinopril 40 mg tablet 40 mg PO DAILY RF: 0 meloxicam 15 mg Tablet 15 mg PO DAILY RF: 0 Discontinued prazosin [Minipress] 1 mg capsule 1 mg PO TID RF: 0 sertraline 50 mg tablet 25 mg PO DAILY RF: 0 Discharge Orders: Discharge Order (Routine); Ordered 07/04/19 Ordered By: Josseline Thakkar Admission Data Admit Date/Time: 06/30/19 14:50 Attending Provider: Umu Gregory Admit Provider: William Romero I. Primary Care Provider: PCP,NO Other Interventions: PSY Interdisciplinary Discharge Planning Last Done: 07/03/19 18:24 Coding Level of Care Code 46531 D/C day mgmt > 30 min Diagnoses Depression F32.9 Depression Type: unspecified PTSD (post-traumatic stress disorder) F43.10 Hypertension I10 Hypertension type: unspecified Hypothyroidism E03.9 Hypercholesterolemia E78.00
== END 2019-07-04 13:30 | disposition home or self-care (01) | DRG 881 ==
LOC: ED 09:12 → 3S 14:50